=== PATIENT | male | born 1975 | race Caucasian/White ===

== ENCOUNTER 2021-06-18 14:06 | Emergency (ER) | payer OTHER ==
[~2021-06-18] VITALS: Ht 167.6 cm; Wt 56.7 kg
[2021-06-18] MEDS ORDERED: DUI500 PO (17:15)
== END 2021-06-18 18:34 | disposition home or self-care (01) ==
LOC: ER 14:06
DX: M79.672 Pain in left foot (principal); R25.2 Cramp and spasm

== ENCOUNTER 2024-09-27 11:28 | Emergency (ER) | payer OTHER ==
[~2024-09-27] VITALS: Ht 167.6 cm; Wt 57.2 kg
[~2024-09-27 11:28] MED LIST: DUI500 PO
[2024-09-27] MEDS ORDERED: 0.9 % SODIUM CHLORIDE 1,000 ML IV STA (12:37)
[2024-09-27 13:34] LABS: HEMATOCRIT 46.7 % (39.0-48.0); HEMOGLOBIN 15.3 g/dL (13-16.00); MEAN CELL VOLUME 83.2 fL (80.0-100.00); MEAN CORPUSCULAR HEMOGLOBIN 27.3 pg (27.00-32.0); MEAN CORPUSCULAR HGB CONC 32.8 g/dl (32.0-36.0); PLATELET COUNT 221 K/uL (150-450); RED BLOOD COUNT 5.61 M/uL (4.00-6.00); RED CELL DISTRIBUTION WIDTH 13.9 % (11.5-14.5)
[2024-09-27] MEDS ORDERED: ONDANSETRON HCL 2 MG/ML VIAL ONE (14:15)
[2024-09-27] MEDS ORDERED: ONDANSETRON HCL 2 MG/ML VIAL IV ONE (14:30)
[2024-09-27 14:36] LABS: PH,URINE 5.5 (5.0-8.0); URINE APPEARANCE Clear; URINE BILIRRUBIN Negative (NEGATIVE); URINE BLOOD Negative; URINE COLOR Yellow; URINE GLUCOSE Negative (NEGATIVE); URINE KETONE Negative (NEGATIVE); URINE LEUKOCYTE Negative; URINE NITRATE Negative; URINE UROBILINOGEN 0.2 E.U./dl
[2024-09-27 14:41] LABS: URINE BACTERIA 4.8 uL (0.0-1933); URINE CAST 2.79 uL (0.0-1.40); URINE EPITHELIAL CELLS 2.6 uL (0.0-38.8); URINE RBC 2.6 uL (0.0-20.8); URINE WBC 8.3 uL (0.0-23.2)
[2024-09-27 15:11] LABS: CALCIUM 8.8 mg/dL (8.5-10.1); CREATININE SERUM 1.02 mg/dL (0.70-1.30); GFR 78.28
[2024-09-27 15:20] LABS: URINE PROTEIN 100 (NEGATIVE)
[2024-09-27] MEDS ORDERED: CIPROFLOXACIN IN 5 % DEXTROSE 400 MG/200 ML PIGGYBAG IV ONE ×2 (15:45→15:57)
[2024-09-27] MEDS ORDERED: METROnidazole 500 MG TABLET (vss) PO ONE (15:45)
[2024-09-27] MEDS ORDERED: METRONIDAZOLE/SODIUM CHLORIDE 500 MG/100 ML PIGGYBACK IV ONE (15:57)
[2024-09-27 16:00] LABS: POTASSIUM 4.28 mEq/L (3.5-5.1)
[2024-09-27] MEDS ORDERED: METRONIDAZOLE/SODIUM CHLORIDE 500 MG/100 ML PIGGYBACK IV STA (16:54)
== END 2024-09-27 18:16 | disposition home or self-care (01) ==
LOC: ER 11:30
PROVIDERS: Emergency Medicine
DX: K52.89 Other specified noninfective gastroenteritis and colitis (principal); Z88.8 Allergy status to other drugs, medicaments and biological substances
CPT/HCPCS: 36415; 96365; 96366; 99282; J0744; J2405; J3490; J7030